=== PATIENT | male | born 1945 | race Caucasian/White ===

== ENCOUNTER 2017-12-01 09:00 | Inpatient (IN) | payer MEDICARE, MEDICAID ==
[~2017-12-01] VITALS: Ht 167.6 cm; Wt 83.1 kg
[2017-12-01] VITALS (9 sets, daily range): BP systolic 116–158; BP diastolic 52–99
[~2017-12-01 09:00] MED LIST: ALB0.5UD IH; ALBU18HF2 IH; ASPI-1265 PO; ATEN-169 PO; ATOR10TA87 PO; CHOL40002 PO; CLOP75TA35 PO; FLO0.4C PO; FOLI-43 PO; PRED5TAB49 PO; UBID50CA23 PO; [UNRECOGNIZED DRUG - CODE]
[2017-12-01] MEDS ORDERED: methylPREDNISolone sod succ 125mg/2ml vial IV ONE (09:10)
[2017-12-01] MEDS ORDERED: ipratropium/albuterol 3ml nebule NEB ONE (09:10)
[2017-12-01] MEDS ORDERED: furosemide 10 MG/1 ML 10ml inj IV ONE (09:15)
[2017-12-01 09:45] LABS: ABG BASE EXCESS 5.2 mmol/L (-2.0-3.0); ABG HCO3 30.7 mmol/L (22.0-26.0); ABG OXYGEN SATURATION 81.7 % (95-98); ABG PH (T) 7.415 (7.350-7.450); ABG PO2 (T) 51.2 mmHg (83-108); ALLEN'S TEST Positive; FCOHb 4.6 % (0.5-1.5); FLOW 2 L/min; FMetHb 0.3 % (0.3-1.12); FO2Hb 77.7 % (94-100); RESPIRATORY RATE (OBSERVED) 24 b/min; TOTAL HEMOGLOBIN 12.5 G/dl (14.0-18.0)
[2017-12-01] MEDS ORDERED: morphine 4 MG/ML inj SYRINge IV ONE (09:50)
[2017-12-01] MEDS ORDERED: LORazepam 2 mg/ml vial IV ONE (09:50)
[2017-12-01 09:52] LABS: BASOPHILS % (AUTO) 0.1 % (0-1); EOSINOPHILS # (AUTO) 0.1 X10'3 (0-0.9); EOSINOPHILS % (AUTO) 1.9 % (0-6); HEMATOCRIT 36.5 % (42.0-52.0); LYMPHOCYTES # (AUTO) 1.7 X10'3 (1.1-4.8); LYMPHOCYTES % (AUTO) 28.9 % (21-51); MEAN CORPUSCULAR HEMOGLOBIN 30.3 PG (27.0-31.0); MEAN CORPUSCULAR HGB CONC 32.8 % (33.0-36.5); MEAN CORPUSCULAR VOLUME 92.3 FL (78-98); MONOCYTES # (AUTO) 0.2 X10'3 (0-0.9); MONOCYTES % (AUTO) 2.8 % (2-12); NEUTROPHILS # (AUTO) 3.9 X10'3 (1.8-7.7); NEUTROPHILS % (AUTO) 66.3 % (42-75); PLATELET COUNT 138 X10'3 (140-440); RED BLOOD COUNT 3.96 X10'6 (4.70-6.10); RED CELL DISTRIBUTION WIDTH 17.9 % (11.5-14.5); WHITE BLOOD COUNT 5.8 X10'3 (4.5-11.0)
[2017-12-01 10:01] LABS: INR 1.1 INR; PROTHROMBIN TIME 11.2 SECONDS (9.0-12.0)
[2017-12-01 10:09] LABS: ALANINE AMINOTRANSFERASE 20 U/L (12-78); ALBUMIN 2.7 G/DL (3.4-5.0); ALBUMIN/GLOBULIN RATIO 0.6 (1.1-1.5); ALKALINE PHOSPHATASE 99 IU/L (46-116); ANION GAP 7 (8-16); ASPARTATE AMINO TRANSFERASE 39 U/L (10-37); BILIRUBIN,TOTAL 0.5 MG/DL (0.1-1.0); BLOOD UREA NITROGEN 19 MG/DL (7-18); BUN/CREATININE RATIO 22.4 (5.4-32.0); CALCIUM 8.7 MG/DL (8.5-10.1); CHLORIDE 103 MMOL/L (99-107); CREATININE 0.85 MG/DL (0.60-1.10); GLUCOSE 101 MG/DL (70-104); POTASSIUM 3.7 MMOL/L (3.5-5.1); SODIUM 145 MMOL/L (135-145); TOTAL CARBON DIOXIDE 34.6 MMOL/L (24-32); eGFR 88 ML/MIN
[2017-12-01] MEDS ORDERED: aspirin 81mg tab.chew PO ONE (10:15)
[2017-12-01] MEDS ORDERED: nitroGLYCERIN 0.4mg SUBLingual tab SL PRN (10:15)
[2017-12-01] MEDS ORDERED: nitroGLYCERIN-Tridil 50MG/D5W 250 ML IV ONE (10:24)
[2017-12-01] MEDS ORDERED: CefTRIAXone 2gm/D5W 50ml 50 ML IV ONE (10:25)
[2017-12-01] MEDS: nitroGLYCERIN-Tridil 50MG/D5W 250 ML IV SCH (10:33)
[2017-12-01 11:16] LABS: ABG BASE EXCESS 6.6 mmol/L (-2.0-3.0); ABG HCO3 33.7 mmol/L (22.0-26.0); ABG OXYGEN SATURATION 93.6 % (95-98); ABG PCO2 (T) 60.8 mmHg (35.0-48.0); ABG PH (T) 7.362 (7.350-7.450); ABG PO2 (T) 80.1 mmHg (83-108); ALLEN'S TEST Positive; FCOHb 3.9 % (0.5-1.5); FMetHb 0.1 % (0.3-1.12); FO2Hb 89.9 % (94-100); MINUTE VOLUME 16 L/min; RESPIRATORY RATE 20 b/min; RESPIRATORY RATE (OBSERVED) 20 b/min; TOTAL HEMOGLOBIN 12.3 G/dl (14.0-18.0)
[2017-12-01 11:25] LABS: CLARITY,URINE CLEAR (Clear); COLOR,URINE STRAW (Yellow); GLUCOSE, URINE NEGATIVE (Neg); KETONES,URINE NEGATIVE (Neg); LEUKOCYTE ESTERASE ,URINE MODERATE (Neg); NITRITES, URINE NEGATIVE (Neg); OCCULT BLOOD,URINE TRACE-INTACT (Neg); PROTEIN,URINE NEGATIVE (Neg); UROBILINOGEN,URINE 0.2 E.U/dL (0.2-1.0)
[2017-12-01 11:31] LABS: UA COLLECTION TYPE FOLEY CATH
[2017-12-01 11:32] LABS: ETHANOL 0.262 GM/DL (0.0-0.010)
[2017-12-01 11:34] LABS: BACTERIA,URINE FEW /HPF (Neg); RBC,URINE 0-2 /HPF (0-2); SQUAMOUS EPITHELIAL CELL,UR FEW /LPF (FEW); WBC CLUMPS,URINE FEW /HPF (NEGATIVE)
[2017-12-01] MEDS ORDERED: haloperidol lactate 5mg/ml inj IM PRN (11:40)
[2017-12-01] MEDS ORDERED: magnesium hydroxide 30ml (MOM) UD suspension PO PRN (11:40)
[2017-12-01] MEDS ORDERED: potassium Cl 20 mEq SR tablet PO PRN ×2 (11:40)
[2017-12-01] MEDS ORDERED: mag hydrox/Alum hydrox/simeth 30ml oral suspension PO PRN (11:40)
[2017-12-01] MEDS ORDERED: haloperidol 5mg tablet PO PRN (11:40)
[2017-12-01] MEDS ORDERED: ondansetron/PF 4mg/2ml inj IV PRN (11:40)
[2017-12-01] MEDS ORDERED: magnesium 1gm/100ml D5W IVPB 100 ML IV PRN (11:40)
[2017-12-01] MEDS ORDERED: thiamine inj. 100 MG in normal saline 100ml IV soln 100 ML IV ONE (11:40)
[2017-12-01] MEDS ORDERED: magnesium 4gm in 100ml NS 100 ML IV PRN (11:40)
[2017-12-01] MEDS ORDERED: acetaminophen 325mg tablet PO PRN (11:40)
[2017-12-01] MEDS ORDERED: potassium Cl 40MEQ/NS 500ml 500 ML IV PRN ×2 (11:40)
[2017-12-01] MEDS ORDERED: NO HOME MEDS (12:20)
[2017-12-01] MEDS: methylPREDNISolone sod succ 125mg/2ml vial IV SCH ×3 (14:07→20:14)
[2017-12-01] MEDS: nicotine 21mg patch - 24 hr TD SCH (14:10)
[2017-12-01] MEDS: ipratropium/albuterol 3ml nebule NEB PRN (17:34)
[2017-12-01] MEDS: doxycycline inj 100 MG in normal saline 100ml IV soln 100 ML IV SCH (20:14)
[2017-12-01] MEDS: LORazepam 2 mg/ml vial IV PRN (22:29)
[2017-12-02] VITALS (13 sets, daily range): BP systolic 151–187; BP diastolic 62–95
[2017-12-02 06:10] LABS: INR 1.1 INR; PROTHROMBIN TIME 11.5 SECONDS (9.0-12.0)
[2017-12-02 06:11] LABS: BASOPHILS % (AUTO) 0 % (0-1); EOSINOPHILS # (AUTO) 0.1 X10'3 (0-0.9); EOSINOPHILS % (AUTO) 1.4 % (0-6); HEMATOCRIT 34.8 % (42.0-52.0); HEMOGLOBIN 11.2 g/dl (14.0-17.9); LYMPHOCYTES # (AUTO) 0.3 X10'3 (1.1-4.8); LYMPHOCYTES % (AUTO) 7.2 % (21-51); MEAN CORPUSCULAR HEMOGLOBIN 29.8 PG (27.0-31.0); MEAN CORPUSCULAR HGB CONC 32.2 % (33.0-36.5); MEAN CORPUSCULAR VOLUME 92.4 FL (78-98); MEAN PLATELET VOLUME 8.6 FL (7.4-10.4); MONOCYTES % (AUTO) 0.8 % (2-12); NEUTROPHILS # (AUTO) 4.4 X10'3 (1.8-7.7); NEUTROPHILS % (AUTO) 90.6 % (42-75); PLATELET COUNT 123 X10'3 (140-440); RED BLOOD COUNT 3.76 X10'6 (4.70-6.10); RED CELL DISTRIBUTION WIDTH 17.4 % (11.5-14.5); WHITE BLOOD COUNT 4.8 X10'3 (4.5-11.0)
[2017-12-02 06:28] LABS: ALANINE AMINOTRANSFERASE 23 U/L (12-78); ALBUMIN 2.6 G/DL (3.4-5.0); ALBUMIN/GLOBULIN RATIO 0.6 (1.1-1.5); ALKALINE PHOSPHATASE 82 IU/L (46-116); AMYLASE 35 U/L (25-115); ANION GAP 9 (8-16); ASPARTATE AMINO TRANSFERASE 34 U/L (10-37); BILIRUBIN,TOTAL 0.6 MG/DL (0.1-1.0); BLOOD UREA NITROGEN 23 MG/DL (7-18); BUN/CREATININE RATIO 25.3 (5.4-32.0); CALCIUM 8.3 MG/DL (8.5-10.1); CHLORIDE 102 MMOL/L (99-107); CHOL/HDL RATIO 2.2 (0.00-4.99); CHOLESTEROL 164 MG/DL (0-200); CREATININE 0.91 MG/DL (0.60-1.10); GLUCOSE 126 MG/DL (70-104); HDL CHOLESTEROL 75 MG/DL (35-60); LDL CHOLESTEROL 79 MG/DL (50-100); LIPASE 71 U/L (73-393); MAGNESIUM 1.9 MG/DL (1.5-2.4); PHOSPHORUS 4.4 MG/DL (2.3-4.5); POTASSIUM 3.9 MMOL/L (3.5-5.1); SODIUM 144 MMOL/L (135-145); TOTAL PROTEIN 6.7 G/DL (6.4-8.2); TRIGLYCERIDES 37 MG/DL (20-135); eGFR 81 ML/MIN
[2017-12-02] MEDS: K and/or MAG REPLACEMENT MC SCH (08:00)
[2017-12-02] MEDS ORDERED: folic acid inj. 2 MG, thiamine inj. 100 MG, MVI, adult No.4 with vit. K 10 ML in dextro... IV SCH ×4 (08:00)
[2017-12-02] MEDS: methylPREDNISolone sod succ 125mg/2ml vial IV SCH ×4 (08:37→22:18)
[2017-12-02] MEDS: enoxaparin 40mg/0.4ml syringe SUBCUT SCH (08:38)
[2017-12-02] MEDS: doxycycline inj 100 MG in normal saline 100ml IV soln 100 ML IV SCH ×2 (08:50→22:18)
[2017-12-02] MEDS: LORazepam 2 mg/ml vial IV PRN ×2 (10:12→14:23)
[2017-12-02] MEDS: nicotine 21mg patch - 24 hr TD SCH (10:17)
[2017-12-02] MEDS ORDERED: potassium Cl 20 mEq SR tablet PO SCH (13:00)
[2017-12-02] MEDS ORDERED: haloperidol lactate 5mg/ml inj IM PRN (13:15)
[2017-12-02] MEDS ORDERED: LORazepam 2 mg/ml vial IV PRN (13:15)
[2017-12-02] MEDS: furosemide 40mg/4ml inj IV SCH ×2 (13:52→22:19)
[2017-12-02] MEDS: ipratropium/albuterol 3ml nebule NEB PRN (16:50)
[2017-12-02] MEDS: potassium Cl oral solution 20 MEQ/15 ML PO SCH (17:08)
[2017-12-02] MEDS ORDERED: iohexol 350MG/ML 100ml bottle IV ONE (23:09)
[2017-12-03] VITALS (10 sets, daily range): BP systolic 134–167; BP diastolic 62–110
[2017-12-03] MEDS: LORazepam 2 mg/ml vial IV PRN ×3 (02:08→21:38)
[2017-12-03 05:35] LABS: BASOPHILS % (AUTO) 0 % (0-1); EOSINOPHILS % (AUTO) 0 % (0-6); HEMATOCRIT 36.5 % (42.0-52.0); HEMOGLOBIN 11.6 g/dl (14.0-17.9); LYMPHOCYTES # (AUTO) 0.5 X10'3 (1.1-4.8); LYMPHOCYTES % (AUTO) 5.2 % (21-51); MEAN CORPUSCULAR HEMOGLOBIN 29.7 PG (27.0-31.0); MEAN CORPUSCULAR HGB CONC 31.8 % (33.0-36.5); MEAN CORPUSCULAR VOLUME 93.4 FL (78-98); MEAN PLATELET VOLUME 8.3 FL (7.4-10.4); MONOCYTES # (AUTO) 0.2 X10'3 (0-0.9); MONOCYTES % (AUTO) 2.1 % (2-12); NEUTROPHILS # (AUTO) 9.1 X10'3 (1.8-7.7); NEUTROPHILS % (AUTO) 92.7 % (42-75); PLATELET COUNT 118 X10'3 (140-440); RED BLOOD COUNT 3.91 X10'6 (4.70-6.10); RED CELL DISTRIBUTION WIDTH 17.5 % (11.5-14.5); WHITE BLOOD COUNT 9.8 X10'3 (4.5-11.0)
[2017-12-03 05:54] LABS: ALANINE AMINOTRANSFERASE 22 U/L (12-78); ALBUMIN 2.8 G/DL (3.4-5.0); ALBUMIN/GLOBULIN RATIO 0.7 (1.1-1.5); ALKALINE PHOSPHATASE 80 IU/L (46-116); ANION GAP 5 (8-16); ASPARTATE AMINO TRANSFERASE 23 U/L (10-37); BILIRUBIN,TOTAL 0.7 MG/DL (0.1-1.0); BLOOD UREA NITROGEN 40 MG/DL (7-18); BUN/CREATININE RATIO 31.5 (5.4-32.0); CALCIUM 8.4 MG/DL (8.5-10.1); CHLORIDE 101 MMOL/L (99-107); CREATININE 1.27 MG/DL (0.60-1.10); GLUCOSE 197 MG/DL (70-104); MAGNESIUM 1.9 MG/DL (1.5-2.4); SODIUM 141 MMOL/L (135-145); TOTAL CARBON DIOXIDE 35.4 MMOL/L (24-32); TOTAL PROTEIN 6.9 G/DL (6.4-8.2); eGFR 55 ML/MIN
[2017-12-03] MEDS: doxycycline inj 100 MG in normal saline 100ml IV soln 100 ML IV SCH ×2 (08:00→20:27)
[2017-12-03] MEDS: K and/or MAG REPLACEMENT MC SCH (08:00)
[2017-12-03] MEDS: furosemide 40mg/4ml inj IV SCH ×2 (08:45→20:27)
[2017-12-03 08:46] LABS: ABG BASE EXCESS 7.6 mmol/L (-2.0-3.0); ABG HCO3 34.6 mmol/L (22.0-26.0); ABG PCO2 (T) 60.6 mmHg (35.0-48.0); ABG PH (T) 7.375 (7.350-7.450); ABG PO2 (T) 75.2 mmHg (83-108); ALLEN'S TEST Positive; FCOHb 0.6 % (0.5-1.5); FLOW 40 L/min; FMetHb 0.2 % (0.3-1.12); FO2Hb 93.2 % (94-100); PEEP 8 cm H2O; RESPIRATORY RATE 14 b/min; TIDAL VOLUME 582 mL; TOTAL HEMOGLOBIN 12.5 G/dl (14.0-18.0)
[2017-12-03] MEDS: methylPREDNISolone sod succ 125mg/2ml vial IV SCH ×3 (08:48→21:01)
[2017-12-03] MEDS: potassium Cl oral solution 20 MEQ/15 ML PO SCH ×2 (08:48→20:07)
[2017-12-03] MEDS: enoxaparin 40mg/0.4ml syringe SUBCUT SCH (08:49)
[2017-12-03] MEDS: folic acid inj. 2 MG, thiamine inj. 100 MG, MVI, adult No.4 with vit. K 10 ML in dextro... IV SCH ×4 (08:49)
[2017-12-03] MEDS: nitroGLYCERIN-Tridil 50MG/D5W 250 ML IV SCH (10:20)
[2017-12-03] MEDS ORDERED: LORazepam 1 MG tablet PO PRN (11:40)
[2017-12-03] MEDS ORDERED: LORazepam 2 mg/ml vial IV PRN (11:40)
[2017-12-03] MEDS: lactobacillus rhamnosus 10,000 MMU CELLS/CAPSULE PO SCH (20:08)
[2017-12-04] VITALS (8 sets, daily range): BP systolic 90–158; BP diastolic 64–108
[2017-12-04] MEDS: LORazepam 2 mg/ml vial IV PRN ×2 (00:15→11:14)
[2017-12-04 00:37] LABS: MAGNESIUM 1.8 MG/DL (1.5-2.4); POTASSIUM 3.8 MMOL/L (3.5-5.1)
[2017-12-04 04:26] LABS: BASOPHILS % (AUTO) 0.1 % (0-1); EOSINOPHILS % (AUTO) 0.4 % (0-6); HEMATOCRIT 34.9 % (42.0-52.0); HEMOGLOBIN 11.4 g/dl (14.0-17.9); LYMPHOCYTES # (AUTO) 0.3 X10'3 (1.1-4.8); LYMPHOCYTES % (AUTO) 4.2 % (21-51); MEAN CORPUSCULAR HEMOGLOBIN 30.2 PG (27.0-31.0); MEAN CORPUSCULAR HGB CONC 32.5 % (33.0-36.5); MEAN CORPUSCULAR VOLUME 92.8 FL (78-98); MEAN PLATELET VOLUME 8.7 FL (7.4-10.4); MONOCYTES # (AUTO) 0.2 X10'3 (0-0.9); MONOCYTES % (AUTO) 2.4 % (2-12); NEUTROPHILS # (AUTO) 6.1 X10'3 (1.8-7.7); NEUTROPHILS % (AUTO) 92.9 % (42-75); PLATELET COUNT 102 X10'3 (140-440); RED BLOOD COUNT 3.76 X10'6 (4.70-6.10); RED CELL DISTRIBUTION WIDTH 17.7 % (11.5-14.5); WHITE BLOOD COUNT 6.6 X10'3 (4.5-11.0)
[2017-12-04 04:41] LABS: ALANINE AMINOTRANSFERASE 18 U/L (12-78); ALBUMIN 2.7 G/DL (3.4-5.0); ALBUMIN/GLOBULIN RATIO 0.7 (1.1-1.5); ALKALINE PHOSPHATASE 73 IU/L (46-116); ANION GAP 1 (8-16); ASPARTATE AMINO TRANSFERASE 21 U/L (10-37); BILIRUBIN,TOTAL 0.8 MG/DL (0.1-1.0); BLOOD UREA NITROGEN 38 MG/DL (7-18); BUN/CREATININE RATIO 36.5 (5.4-32.0); CALCIUM 8.4 MG/DL (8.5-10.1); CHLORIDE 101 MMOL/L (99-107); CREATININE 1.04 MG/DL (0.60-1.10); GLUCOSE 186 MG/DL (70-104); MAGNESIUM 1.8 MG/DL (1.5-2.4); POTASSIUM 4.1 MMOL/L (3.5-5.1); SODIUM 144 MMOL/L (135-145); TOTAL PROTEIN 6.7 G/DL (6.4-8.2); eGFR 70 ML/MIN
[2017-12-04 04:43] LABS: TOTAL CARBON DIOXIDE 41.9 MMOL/L (24-32)
[2017-12-04] MEDS: doxycycline inj 100 MG in normal saline 100ml IV soln 100 ML IV SCH ×2 (07:48→21:06)
[2017-12-04] MEDS: folic acid inj. 2 MG, thiamine inj. 100 MG, MVI, adult No.4 with vit. K 10 ML in dextro... IV SCH ×4 (07:49)
[2017-12-04] MEDS: enoxaparin 40mg/0.4ml syringe SUBCUT SCH (07:50)
[2017-12-04] MEDS: potassium Cl oral solution 20 MEQ/15 ML PO SCH ×2 (07:50→17:42)
[2017-12-04] MEDS: furosemide 40mg/4ml inj IV SCH ×2 (07:50→21:04)
[2017-12-04] MEDS: lactobacillus rhamnosus 10,000 MMU CELLS/CAPSULE PO SCH ×2 (07:50→21:05)
[2017-12-04] MEDS: methylPREDNISolone sod succ 125mg/2ml vial IV SCH ×4 (07:51→21:05)
[2017-12-04] MEDS: K and/or MAG REPLACEMENT MC SCH (07:51)
[2017-12-04 17:46] LABS: ABG BASE EXCESS 14.6 mmol/L (-2.0-3.0); ABG HCO3 41.6 mmol/L (22.0-26.0); ABG OXYGEN SATURATION 96.8 % (95-98); ABG PCO2 (T) 63.2 mmHg (35.0-48.0); ABG PH (T) 7.436 (7.350-7.450); ABG PO2 (T) 94.1 mmHg (83-108); ALLEN'S TEST Positive; FCOHb 0.4 % (0.5-1.5); FMetHb 0.1 % (0.3-1.12); FO2Hb 96.3 % (94-100); MINUTE VOLUME 18 L/min; RESPIRATORY RATE 16 b/min; TOTAL HEMOGLOBIN 12.4 G/dl (14.0-18.0)
[2017-12-05 01:00] VITALS: BP 165/78
[2017-12-05 03:00] VITALS: BP 165/89
[2017-12-05 05:35] LABS: BASOPHILS % (AUTO) 0.1 % (0-1); EOSINOPHILS # (AUTO) 0.1 X10'3 (0-0.9); EOSINOPHILS % (AUTO) 1.1 % (0-6); HEMATOCRIT 34.9 % (42.0-52.0); HEMOGLOBIN 11.5 g/dl (14.0-17.9); LYMPHOCYTES # (AUTO) 0.2 X10'3 (1.1-4.8); LYMPHOCYTES % (AUTO) 3.3 % (21-51); MEAN CORPUSCULAR HEMOGLOBIN 30.2 PG (27.0-31.0); MEAN CORPUSCULAR HGB CONC 32.8 % (33.0-36.5); MEAN CORPUSCULAR VOLUME 92.2 FL (78-98); MEAN PLATELET VOLUME 9.1 FL (7.4-10.4); MONOCYTES # (AUTO) 0.2 X10'3 (0-0.9); MONOCYTES % (AUTO) 3.7 % (2-12); NEUTROPHILS # (AUTO) 5.9 X10'3 (1.8-7.7); NEUTROPHILS % (AUTO) 91.8 % (42-75); PLATELET COUNT 80 X10'3 (140-440); RED BLOOD COUNT 3.79 X10'6 (4.70-6.10); RED CELL DISTRIBUTION WIDTH 17.4 % (11.5-14.5); WHITE BLOOD COUNT 6.5 X10'3 (4.5-11.0)
[2017-12-05 06:00] VITALS: BP 113/92
[2017-12-05 06:16] LABS: ALANINE AMINOTRANSFERASE 21 U/L (12-78); ALBUMIN 2.7 G/DL (3.4-5.0); ALBUMIN/GLOBULIN RATIO 0.7 (1.1-1.5); ALKALINE PHOSPHATASE 72 IU/L (46-116); ANION GAP 3 (8-16); ASPARTATE AMINO TRANSFERASE 30 U/L (10-37); BILIRUBIN,TOTAL 1.1 MG/DL (0.1-1.0); BLOOD UREA NITROGEN 39 MG/DL (7-18); BUN/CREATININE RATIO 45.3 (5.4-32.0); CALCIUM 8.6 MG/DL (8.5-10.1); CHLORIDE 100 MMOL/L (99-107); CREATININE 0.86 MG/DL (0.60-1.10); GLUCOSE 198 MG/DL (70-104); MAGNESIUM 1.9 MG/DL (1.5-2.4); POTASSIUM 3.6 MMOL/L (3.5-5.1); SODIUM 144 MMOL/L (135-145); TOTAL PROTEIN 6.7 G/DL (6.4-8.2); eGFR 87 ML/MIN
[2017-12-05 06:21] LABS: TOTAL CARBON DIOXIDE 40.7 MMOL/L (24-32)
[2017-12-05] MEDS: K and/or MAG REPLACEMENT MC SCH (08:00)
[2017-12-05] MEDS: folic acid inj. 2 MG, thiamine inj. 100 MG, MVI, adult No.4 with vit. K 10 ML in dextro... IV SCH ×4 (08:11)
[2017-12-05] MEDS: doxycycline inj 100 MG in normal saline 100ml IV soln 100 ML IV SCH ×2 (08:11→19:17)
[2017-12-05] MEDS: furosemide 40mg/4ml inj IV SCH ×2 (08:12→19:18)
[2017-12-05] MEDS: lactobacillus rhamnosus 10,000 MMU CELLS/CAPSULE PO SCH ×2 (08:12→19:18)
[2017-12-05] MEDS: potassium Cl oral solution 20 MEQ/15 ML PO SCH ×2 (08:12→17:22)
[2017-12-05] MEDS: enoxaparin 40mg/0.4ml syringe SUBCUT SCH (08:12)
[2017-12-05] MEDS: methylPREDNISolone sod succ 125mg/2ml vial IV SCH ×4 (08:12→21:00)
[2017-12-05] MEDS ORDERED: nicotine 21mg patch - 24 hr TD ONE (11:30)
[2017-12-05] MEDS ORDERED: LORazepam 2 mg/ml vial IV PRN (11:40)
[2017-12-05] MEDS ORDERED: LORazepam 1 MG tablet PO PRN (11:40)
[2017-12-05 15:00] VITALS: BP 147/74
[2017-12-05 19:00] VITALS: BP 161/70
[2017-12-05] MEDS: LORazepam 2 mg/ml vial IV PRN (19:18)
[2017-12-05 23:00] VITALS: BP 151/77
[2017-12-06 03:00] VITALS: BP 144/61
[2017-12-06 06:00] VITALS: BP 158/79
[2017-12-06 06:12] LABS: BASOPHILS % (AUTO) 0 % (0-1); EOSINOPHILS # (AUTO) 0.1 X10'3 (0-0.9); EOSINOPHILS % (AUTO) 0.8 % (0-6); HEMATOCRIT 36.5 % (42.0-52.0); LYMPHOCYTES # (AUTO) 0.3 X10'3 (1.1-4.8); LYMPHOCYTES % (AUTO) 3.9 % (21-51); MEAN CORPUSCULAR HEMOGLOBIN 30.3 PG (27.0-31.0); MEAN CORPUSCULAR HGB CONC 32.8 % (33.0-36.5); MEAN CORPUSCULAR VOLUME 92.4 FL (78-98); MEAN PLATELET VOLUME 9.1 FL (7.4-10.4); MONOCYTES # (AUTO) 0.2 X10'3 (0-0.9); MONOCYTES % (AUTO) 3.2 % (2-12); NEUTROPHILS # (AUTO) 6.4 X10'3 (1.8-7.7); NEUTROPHILS % (AUTO) 92.1 % (42-75); PLATELET COUNT 73 X10'3 (140-440); RED BLOOD COUNT 3.95 X10'6 (4.70-6.10); RED CELL DISTRIBUTION WIDTH 17.4 % (11.5-14.5); WHITE BLOOD COUNT 6.9 X10'3 (4.5-11.0)
[2017-12-06 06:25] LABS: ALANINE AMINOTRANSFERASE 50 U/L (12-78); ALBUMIN 2.7 G/DL (3.4-5.0); ALBUMIN/GLOBULIN RATIO 0.7 (1.1-1.5); ALKALINE PHOSPHATASE 74 IU/L (46-116); ANION GAP 2 (8-16); ASPARTATE AMINO TRANSFERASE 75 U/L (10-37); BILIRUBIN,TOTAL 1.4 MG/DL (0.1-1.0); BLOOD UREA NITROGEN 37 MG/DL (7-18); CALCIUM 8.4 MG/DL (8.5-10.1); CHLORIDE 99 MMOL/L (99-107); CREATININE 0.86 MG/DL (0.60-1.10); GLUCOSE 232 MG/DL (70-104); MAGNESIUM 1.7 MG/DL (1.5-2.4); POTASSIUM 3.6 MMOL/L (3.5-5.1); SODIUM 143 MMOL/L (135-145); TOTAL PROTEIN 6.6 G/DL (6.4-8.2); eGFR 87 ML/MIN
[2017-12-06 06:28] LABS: TOTAL CARBON DIOXIDE 42.5 MMOL/L (24-32)
[2017-12-06] MEDS: K and/or MAG REPLACEMENT MC SCH (08:00)
[2017-12-06] MEDS: enoxaparin 40mg/0.4ml syringe SUBCUT SCH (08:00)
[2017-12-06] MEDS: doxycycline inj 100 MG in normal saline 100ml IV soln 100 ML IV SCH ×2 (08:23→20:37)
[2017-12-06] MEDS: folic acid inj. 2 MG, thiamine inj. 100 MG, MVI, adult No.4 with vit. K 10 ML in dextro... IV SCH ×4 (08:23)
[2017-12-06] MEDS: potassium Cl oral solution 20 MEQ/15 ML PO SCH ×2 (08:23→17:44)
[2017-12-06] MEDS: methylPREDNISolone sod succ 125mg/2ml vial IV SCH ×4 (08:24→20:36)
[2017-12-06] MEDS: furosemide 40mg/4ml inj IV SCH ×2 (08:25→20:36)
[2017-12-06] MEDS: lactobacillus rhamnosus 10,000 MMU CELLS/CAPSULE PO SCH ×2 (08:26→20:36)
[2017-12-06] MEDS: nicotine 21mg patch - 24 hr TD SCH (08:26)
[2017-12-06 11:00] VITALS: BP 151/82
[2017-12-06 15:16] LABS: ABG BASE EXCESS 13.7 mmol/L (-2.0-3.0); ABG HCO3 40.9 mmol/L (22.0-26.0); ABG OXYGEN SATURATION 96.8 % (95-98); ABG PCO2 (T) 63.2 mmHg (35.0-48.0); ABG PH (T) 7.427 (7.350-7.450); ABG PO2 (T) 90.2 mmHg (83-108); ALLEN'S TEST Positive; FLOW 4 L/min; FMetHb 0.1 % (0.3-1.12); FO2Hb 95.7 % (94-100); PATIENT TEMPERATURE 36.7; TOTAL HEMOGLOBIN 12.6 G/dl (14.0-18.0)
[2017-12-06 19:00] VITALS: BP 145/72
[2017-12-06] MEDS: LORazepam 2 mg/ml vial IV PRN (22:53)
[2017-12-06 23:00] VITALS: BP 178/88
[2017-12-07 03:00] VITALS: BP 137/95
[2017-12-07 06:00] VITALS: BP 115/73
[2017-12-07 07:37] LABS: BASOPHILS % (AUTO) 0 % (0-1); EOSINOPHILS % (AUTO) 0 % (0-6); HEMATOCRIT 36.6 % (42.0-52.0); HEMOGLOBIN 11.7 g/dl (14.0-17.9); LYMPHOCYTES # (AUTO) 0.4 X10'3 (1.1-4.8); LYMPHOCYTES % (AUTO) 3.2 % (21-51); MEAN CORPUSCULAR HEMOGLOBIN 29.8 PG (27.0-31.0); MEAN CORPUSCULAR HGB CONC 32.1 % (33.0-36.5); MEAN CORPUSCULAR VOLUME 92.8 FL (78-98); MEAN PLATELET VOLUME 9.2 FL (7.4-10.4); MONOCYTES # (AUTO) 0.4 X10'3 (0-0.9); MONOCYTES % (AUTO) 3.3 % (2-12); NEUTROPHILS # (AUTO) 11.4 X10'3 (1.8-7.7); NEUTROPHILS % (AUTO) 93.5 % (42-75); PLATELET COUNT 76 X10'3 (140-440); RED BLOOD COUNT 3.95 X10'6 (4.70-6.10); RED CELL DISTRIBUTION WIDTH 17.6 % (11.5-14.5); WHITE BLOOD COUNT 12.1 X10'3 (4.5-11.0)
[2017-12-07 07:50] LABS: ALANINE AMINOTRANSFERASE 78 U/L (12-78); ALBUMIN 2.6 G/DL (3.4-5.0); ALBUMIN/GLOBULIN RATIO 0.7 (1.1-1.5); ALKALINE PHOSPHATASE 72 IU/L (46-116); ANION GAP -2 (8-16); ASPARTATE AMINO TRANSFERASE 68 U/L (10-37); BILIRUBIN,TOTAL 1.1 MG/DL (0.1-1.0); BLOOD UREA NITROGEN 37 MG/DL (7-18); BUN/CREATININE RATIO 35.6 (5.4-32.0); CALCIUM 8.6 MG/DL (8.5-10.1); CHLORIDE 100 MMOL/L (99-107); CREATININE 1.04 MG/DL (0.60-1.10); GLUCOSE 210 MG/DL (70-104); POTASSIUM 4.2 MMOL/L (3.5-5.1); SODIUM 142 MMOL/L (135-145); TOTAL PROTEIN 6.1 G/DL (6.4-8.2); eGFR 70 ML/MIN
[2017-12-07 07:58] LABS: TOTAL CARBON DIOXIDE 43.6 MMOL/L (24-32)
[2017-12-07] MEDS: K and/or MAG REPLACEMENT MC SCH (08:00)
[2017-12-07] MEDS: enoxaparin 40mg/0.4ml syringe SUBCUT SCH (08:00)
[2017-12-07] MEDS: potassium Cl oral solution 20 MEQ/15 ML PO SCH ×2 (08:38→17:31)
[2017-12-07] MEDS: lactobacillus rhamnosus 10,000 MMU CELLS/CAPSULE PO SCH ×2 (08:38→20:26)
[2017-12-07] MEDS: methylPREDNISolone sod succ 125mg/2ml vial IV SCH ×4 (08:40→20:25)
[2017-12-07] MEDS: doxycycline inj 100 MG in normal saline 100ml IV soln 100 ML IV SCH ×2 (08:41→20:25)
[2017-12-07] MEDS: furosemide 40mg/4ml inj IV SCH ×2 (08:41→20:26)
[2017-12-07] MEDS: nicotine 21mg patch - 24 hr TD SCH (08:43)
[2017-12-07] MEDS: folic acid inj. 2 MG, thiamine inj. 100 MG, MVI, adult No.4 with vit. K 10 ML in dextro... IV SCH ×4 (08:44)
[2017-12-07 11:00] VITALS: BP 124/46
[2017-12-07 15:00] VITALS: BP 109/57
[2017-12-07 19:00] VITALS: BP 151/62
[2017-12-07 23:00] VITALS: BP 115/44
[2017-12-08] VITALS (7 sets, daily range): BP systolic 124–157; BP diastolic 58–85
[2017-12-08 07:49] LABS: BASOPHILS % (AUTO) 0.2 % (0-1); EOSINOPHILS # (AUTO) 0.1 X10'3 (0-0.9); EOSINOPHILS % (AUTO) 0.5 % (0-6); HEMATOCRIT 35.2 % (42.0-52.0); HEMOGLOBIN 11.3 g/dl (14.0-17.9); LYMPHOCYTES # (AUTO) 0.6 X10'3 (1.1-4.8); LYMPHOCYTES % (AUTO) 3.9 % (21-51); MEAN CORPUSCULAR VOLUME 93.9 FL (78-98); MONOCYTES # (AUTO) 0.3 X10'3 (0-0.9); MONOCYTES % (AUTO) 1.8 % (2-12); NEUTROPHILS # (AUTO) 13.5 X10'3 (1.8-7.7); NEUTROPHILS % (AUTO) 93.6 % (42-75); PLATELET COUNT 64 X10'3 (140-440); RED BLOOD COUNT 3.75 X10'6 (4.70-6.10); RED CELL DISTRIBUTION WIDTH 17.5 % (11.5-14.5); WHITE BLOOD COUNT 14.4 X10'3 (4.5-11.0)
[2017-12-08] MEDS: furosemide 40mg/4ml inj IV SCH ×2 (07:54→20:09)
[2017-12-08] MEDS: lactobacillus rhamnosus 10,000 MMU CELLS/CAPSULE PO SCH ×2 (07:54→20:09)
[2017-12-08] MEDS: methylPREDNISolone sod succ 125mg/2ml vial IV SCH ×4 (07:54→20:09)
[2017-12-08] MEDS: potassium Cl oral solution 20 MEQ/15 ML PO SCH ×2 (07:54→12:37)
[2017-12-08] MEDS: folic acid inj. 2 MG, thiamine inj. 100 MG, MVI, adult No.4 with vit. K 10 ML in dextro... IV SCH ×4 (07:55)
[2017-12-08] MEDS: doxycycline inj 100 MG in normal saline 100ml IV soln 100 ML IV SCH (07:55)
[2017-12-08] MEDS: nicotine 21mg patch - 24 hr TD SCH (07:55)
[2017-12-08] MEDS: K and/or MAG REPLACEMENT MC SCH (08:00)
[2017-12-08 08:02] LABS: ALANINE AMINOTRANSFERASE 65 U/L (12-78); ALBUMIN 2.3 G/DL (3.4-5.0); ALBUMIN/GLOBULIN RATIO 0.7 (1.1-1.5); ALKALINE PHOSPHATASE 73 IU/L (46-116); ASPARTATE AMINO TRANSFERASE 38 U/L (10-37); BILIRUBIN,TOTAL 1.2 MG/DL (0.1-1.0); BLOOD UREA NITROGEN 36 MG/DL (7-18); CALCIUM 8.5 MG/DL (8.5-10.1); CHLORIDE 99 MMOL/L (99-107); GLUCOSE 198 MG/DL (70-104); MAGNESIUM 2.1 MG/DL (1.5-2.4); POTASSIUM 4.5 MMOL/L (3.5-5.1); SODIUM 142 MMOL/L (135-145); TOTAL PROTEIN 5.8 G/DL (6.4-8.2); eGFR 82 ML/MIN
[2017-12-08 08:08] LABS: ANION GAP 1 (8-16)
[2017-12-08 08:10] LABS: TOTAL CARBON DIOXIDE 41.9 MMOL/L (24-32)
[2017-12-08] MEDS: ipratropium/albuterol 3ml nebule NEB PRN (20:33)
[2017-12-09] VITALS (7 sets, daily range): BP systolic 108–150; BP diastolic 51–72
[2017-12-09] MEDS: furosemide 40mg/4ml inj IV SCH (07:33)
[2017-12-09] MEDS: lactobacillus rhamnosus 10,000 MMU CELLS/CAPSULE PO SCH ×2 (07:33→19:54)
[2017-12-09] MEDS: folic acid inj. 2 MG, thiamine inj. 100 MG, MVI, adult No.4 with vit. K 10 ML in dextro... IV SCH ×4 (07:33)
[2017-12-09] MEDS: potassium Cl oral solution 20 MEQ/15 ML PO SCH ×2 (07:33→17:25)
[2017-12-09] MEDS: methylPREDNISolone sod succ 125mg/2ml vial IV SCH ×2 (07:33→13:12)
[2017-12-09] MEDS: nicotine 21mg patch - 24 hr TD SCH (07:33)
[2017-12-09] MEDS: K and/or MAG REPLACEMENT MC SCH (08:00)
[2017-12-09] MEDS ORDERED: furosemide 20MG tablet PO ONE (14:15)
[2017-12-09] MEDS: emollient combination-Eucerin 250 ML LOTION TP SCH (19:59)
[2017-12-09] MEDS ORDERED: furosemide 20 MG/2 ML vial IV SCH (20:00)
[2017-12-09] MEDS ORDERED: famotidine 20mg tablet PO SCH (21:00)
[2017-12-10 03:00] VITALS: BP 145/41
[2017-12-10 06:00] VITALS: BP 131/60
[2017-12-10 07:18] LABS: BASOPHILS % (AUTO) 0.4 % (0-1); EOSINOPHILS % (AUTO) 0 % (0-6); HEMATOCRIT 34.2 % (42.0-52.0); LYMPHOCYTES # (AUTO) 0.5 X10'3 (1.1-4.8); LYMPHOCYTES % (AUTO) 4.1 % (21-51); MEAN CORPUSCULAR HEMOGLOBIN 29.8 PG (27.0-31.0); MEAN CORPUSCULAR HGB CONC 32.1 % (33.0-36.5); MEAN PLATELET VOLUME 10.2 FL (7.4-10.4); MONOCYTES # (AUTO) 0.1 X10'3 (0-0.9); MONOCYTES % (AUTO) 0.8 % (2-12); NEUTROPHILS # (AUTO) 12.1 X10'3 (1.8-7.7); NEUTROPHILS % (AUTO) 94.7 % (42-75); PLATELET COUNT 60 X10'3 (140-440); RED BLOOD COUNT 3.68 X10'6 (4.70-6.10); WHITE BLOOD COUNT 12.8 X10'3 (4.5-11.0)
[2017-12-10] MEDS: K and/or MAG REPLACEMENT MC SCH (08:00)
[2017-12-10] MEDS ORDERED: folic acid 1mg tablet PO SCH (08:00)
[2017-12-10] MEDS ORDERED: multivitamins, therapeutics tablet PO SCH (08:00)
[2017-12-10] MEDS: emollient combination-Eucerin 250 ML LOTION TP SCH (08:00)
[2017-12-10] MEDS ORDERED: predniSONE 20 mg tablet PO SCH (08:00)
[2017-12-10] MEDS ORDERED: thiamine 100mg tablet PO SCH (08:00)
[2017-12-10] MEDS: lactobacillus rhamnosus 10,000 MMU CELLS/CAPSULE PO SCH (08:24)
[2017-12-10] MEDS: nicotine 21mg patch - 24 hr TD SCH (08:27)
[2017-12-10] MEDS: potassium Cl oral solution 20 MEQ/15 ML PO SCH (08:27)
[2017-12-10 08:50] LABS: ANION GAP 0 (8-16); CHLORIDE 97 MMOL/L (99-107); GLUCOSE 165 MG/DL (70-104); POTASSIUM 4.4 MMOL/L (3.5-5.1); SODIUM 140 MMOL/L (135-145)
[2017-12-10 08:51] LABS: TOTAL CELLS COUNTED 100; TOXIC GRANULATION 2+; TOXIC VACUOLATION 3+
[2017-12-10 08:51] LABS: ALBUMIN 2.3 G/DL (3.4-5.0); BLOOD UREA NITROGEN 29 MG/DL (7-18); BUN/CREATININE RATIO 31.5 (5.4-32.0); CALCIUM 8.6 MG/DL (8.5-10.1); CREATININE 0.92 MG/DL (0.60-1.10); eGFR 80 ML/MIN
[2017-12-10 08:52] LABS: TOTAL CARBON DIOXIDE 42.6 MMOL/L (24-32)
[2017-12-10 08:53] LABS: ANISOCYTOSIS 2+; PLATELET ESTIMATE DECREASED
[2017-12-10 11:00] VITALS: BP 145/59
[2017-12-10 15:00] VITALS: BP 122/58
== END 2017-12-10 15:59 | DRG 280 ==
LOC: ER 09:05 → ED HOLD 11:39 → PCU 3S 14:21
PROVIDERS: ADMIT Family Medicine; ATTEND Internal Medicine
PROC: 5A09357 Assistance with Respiratory Ventilation, Less than 24 Consecutive Hours, Continuous Positive Airway Pressure (ICD-10-PCS; principal; 2017-12-01)
PROC: 5A09357 Assistance with Respiratory Ventilation, Less than 24 Consecutive Hours, Continuous Positive Airway Pressure (ICD-10-PCS; 2017-12-02)
PROC: B32T1ZZ Computerized Tomography (CT Scan) of Left Pulmonary Artery using Low Osmolar Contrast (ICD-10-PCS; 2017-12-02)
PROC: B3201ZZ Computerized Tomography (CT Scan) of Thoracic Aorta using Low Osmolar Contrast (ICD-10-PCS; 2017-12-02)
PROC: B32S1ZZ Computerized Tomography (CT Scan) of Right Pulmonary Artery using Low Osmolar Contrast (ICD-10-PCS; 2017-12-02)
PROC: 5A09457 Assistance with Respiratory Ventilation, 24-96 Consecutive Hours, Continuous Positive Airway Pressure (ICD-10-PCS; 2017-12-03)
PROC: 5A09357 Assistance with Respiratory Ventilation, Less than 24 Consecutive Hours, Continuous Positive Airway Pressure (ICD-10-PCS; 2017-12-05)
PROC: 5A09457 Assistance with Respiratory Ventilation, 24-96 Consecutive Hours, Continuous Positive Airway Pressure (ICD-10-PCS; 2017-12-07)
PROC: 5A09357 Assistance with Respiratory Ventilation, Less than 24 Consecutive Hours, Continuous Positive Airway Pressure (ICD-10-PCS; 2017-12-09)
DX: I21.A1 Myocardial infarction type 2 (principal); I50.33 Acute on chronic diastolic (congestive) heart failure; J96.21 Acute and chronic respiratory failure with hypoxia; J44.1 Chronic obstructive pulmonary disease with (acute) exacerbation; F10.231 Alcohol dependence with withdrawal delirium; N39.0 Urinary tract infection, site not specified; Y90.0 Blood alcohol level of less than 20 mg/100 ml; E78.5 Hyperlipidemia, unspecified; I11.0 Hypertensive heart disease with heart failure; Z60.2 Problems related to living alone; I25.10 Atherosclerotic heart disease of native coronary artery without angina pectoris; N40.0 Benign prostatic hyperplasia without lower urinary tract symptoms; F17.210 Nicotine dependence, cigarettes, uncomplicated; Z99.81 Dependence on supplemental oxygen; Z91.14 Patient's other noncompliance with medication regimen; Z95.1 Presence of aortocoronary bypass graft; I25.2 Old myocardial infarction; Z91.19 Patient's noncompliance with other medical treatment and regimen; Z79.02 Long term (current) use of antithrombotics/antiplatelets; Z79.82 Long term (current) use of aspirin; Z79.899 Other long term (current) drug therapy; Z71.6 Tobacco abuse counseling; Z71.41 Alcohol abuse counseling and surveillance of alcoholic
CPT/HCPCS: 36415; 36600; 71045; 71275; 80048; 80053; 80061; 80320; 81001; 82150; 82803; 82948; 83605; 83690; 83735; 83880; 84100; 84132; 84484; 85018; 85025; 85610; 87040; 87070; 87077; 87088; 87186; 93005; 93306; 94640; 94660; 94760; 96365; 96375; 97116; 97162; 97164; 97530; 99291; A4315; A6250; J0696; J1650; J1940; J2060; J2270; J2405; J2930; J3411; J3490; J7030; J7060; J7512; Q9967